=== PATIENT | male | born 1955 | race Caucasian/White ===

== ENCOUNTER 2017-03-08 11:05 | Inpatient (IN) | payer MEDICARE, OTHER ==
[~2017-03-08 11:05] MED LIST: NO HOME MEDS
[2017-03-09 05:49] LABS: HCT-HEMATOCRIT 37.3 % (36.0-53.5); HGB-HEMOGLOBIN 12.7 gm/dl (13.5-17.0); IMMATURE GRANULOCYTES ABSOLUTE 0.03 tho/cmm (0-0.03); IMMATURE GRANULOCYTES PERCENT 0.2 % (0-0.3); LYMPH % 18.7 % (20-45); LYMPH ABSOLUTE COUNT 2.5 tho/cmm (0.8-4.5); MCH (MEAN CORPUSCULAR HGB) 29.8 pg (28.0-32.0); MCV (MEAN CELL VOLUME) 87.6 fl (82.0-96.0); MEAN PLATELET VOLUME 10.4 cmc (9.4-12.4); MONO % 8.2 % (0-12); MONOCYTE ABSOLUTE COUNT 1.1 tho/cmm (0.0-1.2); NEUTROPHIL ABSOLUTE COUNT 9.8 tho/cmm (1.6-8.0); NEUTROPHIL-AUTOMATED 9.8 tho/cmm (1.6-8.0); NEUTROPHILS % 72.9 % (40-80); PLATELET COUNT 195 tho/cmm (150-450); RED BLOOD COUNT 4.26 mil/cmm (4.40-5.70); RED CELL DISTRIBUTION WIDTH 12.8 % (12.4-16.4); WHITE BLOOD COUNT 13.4 tho/cmm (4.0-10.0)
[2017-03-10] MEDS ORDERED: ULTRAM50 M1 PO (08:49)
[2017-03-10] MEDS ORDERED: ASPIRIN325 M3 PO (08:50)
[2017-03-10] MEDS ORDERED: TYLENOL325 M2 PO (09:24)
== END 2017-03-10 14:15 | DRG 470 ==
LOC: SHSB 11:05 → ORE 12:59 → PACU 16:24 → 5EA 18:07
PROVIDERS: ADMIT Orthopaedic Surgery
PROC: 0SR904A Replacement of Right Hip Joint with Ceramic on Polyethylene Synthetic Substitute, Uncemented, Open Approach (ICD-10-PCS; principal; 2017-03-08)
DX: M16.11 Unilateral primary osteoarthritis, right hip (principal); E66.01 Morbid (severe) obesity due to excess calories; M47.896 Other spondylosis, lumbar region; E78.00 Pure hypercholesterolemia, unspecified; E80.4 Gilbert syndrome; Z85.46 Personal history of malignant neoplasm of prostate; Z68.35 Body mass index [BMI] 35.0-35.9, adult
CPT/HCPCS: J0171; J0690; J1170; J1885; J2270; J2405; J2795; J3010